=== PATIENT | female | born 1985 | race American Indian/Alaskan Native ===

== ENCOUNTER 2017-03-01 11:29 | Emergency (ER) | payer BC ==
[2017-03-01 12:17] VITALS: BP 127/87
== END 2017-03-01 14:20 | disposition left against medical advice (07) ==
LOC: ED 11:29
DX: R06.00 Dyspnea, unspecified (principal); Z53.21 Procedure and treatment not carried out due to patient leaving prior to being seen by health care provider
CPT/HCPCS: 71020

== ENCOUNTER 2021-07-04 18:50 | Emergency (ER) | payer BC ==
[2021-07-04 19:20] VITALS: BP 151/95
[2021-07-04] MEDS ORDERED: ALBUTEROL 2.5 MG/3 ML NEBU IH ONE (19:21)
== END 2021-07-05 17:00 | disposition left against medical advice (07) ==
LOC: ED 18:50
DX: J45.901 Unspecified asthma with (acute) exacerbation (principal); Z53.21 Procedure and treatment not carried out due to patient leaving prior to being seen by health care provider